=== PATIENT | female | born 1985 | race Caucasian/White ===

== ENCOUNTER 2022-02-08 22:15 | Emergency (ER) | payer MEDICAID ==
[~2022-02-08] VITALS: Ht 172.7 cm; Wt 76.0 kg
[2022-02-08 22:21] VITALS: BP 119/71
[2022-02-08] MEDS ORDERED: VISCOUS LIDOCAINE 2% 15 ML UDC PO STA (23:29)
[2022-02-08] MEDS ORDERED: MAGNESIUM/ALUMINUM HYDROXIDE/SIMETHICONE 30ML UDC PO STA (23:29)
[2022-02-08] MEDS ORDERED: ONDANSETRON HCL 4MG/2ML INJ IV STA (23:29)
[2022-02-08] MEDS ORDERED: SODIUM CHLORIDE 0.9% 1,000 ML IV ONE (23:30)
== END 2022-02-09 01:00 | disposition left against medical advice (07) ==
LOC: ER 22:15
DX: R11.2 Nausea with vomiting, unspecified (principal); R00.0 Tachycardia, unspecified
CPT/HCPCS: 93005; 99283; J7030